=== PATIENT | female | born 1980 | race Caucasian/White ===

== ENCOUNTER 2023-08-12 06:21 | Day surgery (SDC) | payer OTHER, SELFPAY ==
[2023-08-12 08:25] VITALS: BMI 21.3
[2023-08-12 08:26] VITALS: BP 132/86; BMI 21.3
[2023-08-12] MEDS: TYLENOL 1000 MG PO (08:32)
[2023-08-12] MEDS: NORMOSOL-R 1000 IV (08:32)
[2023-08-12 10:18] VITALS: BP 98/47
--- NOTE | 2023-08-12 10:28 | W.SUR.PREOP ---
Pre-Operative Surgical Note
-
I have examined this patient prior to the performance of the scheduled procedure.
The patient's condition is unchanged from the time of the current History and
Physical and the patient is able to undergo the scheduled procedure.
--- NOTE | 2023-08-12 10:28 | W.IMMPOSTOP ---
Surgical Immed Post Op Note
-
Primary Surgeon: Dennis Ambrocio MD
Assisting Surgeon: None
Pre-op Diagnosis: Umbilical hernia
Post-op Diagnosis: Same
Procedure Performed: Open umbilical hernia repair with mesh
Anesthesia Type: MAC
Specimen / Cultures: None
Estimated Blood Loss: 1 cc
Complications: None
Operative Findings: Subcentimeter umbilical defect as well as an additional subcentimeter supraumbilical defect identified and reduced. Final dimensions 1 x 1.5 cm. 4 x 4 cm preperitoneal space developed and a 4 x 4 centimeter piece of Bard soft
uncoated polypropylene mesh was placed in the space.
[2023-08-12 10:30] VITALS: BP 89/52
--- NOTE | 2023-08-12 10:31 | OR.RPT ---
Operative Report
Operative Report
Patient Name: Emma Ahn
: 1980
Date of Operation: 08/12/2023
Preoperative Diagnosis: Umbilical hernia
Postoperative Diagnosis: Same
Procedure(s):
Open umbilical hernia repair with mesh
Surgeon(s):
Dr. Ambrocio
Vehicle Maintenance Technician(s):
MASON Hernández
Anesthesia: MAC
Estimated Blood Loss: 1 cc
Urine Output: None
Drains/Lines/Implants: 4 x 4 centimeter Bard soft uncoated polypropylene mesh
Specimens: None
Indication for surgery:
The patient has a symptomatic umbilical hernia. After review of their therapeutic options, they elected to pursue open repair.
Operative Findings: Subcentimeter umbilical defect as well as an additional subcentimeter supraumbilical defect identified and reduced. Final dimensions 1 x 1.5 cm. 4 x 4 cm preperitoneal space developed and a 4 x 4 centimeter piece of Bard soft
uncoated polypropylene mesh was placed in the space.
Details of the operation:
After successful induction of anesthesia, the patient was clipped, prepped and draped in the supine position. A team timeout was performed confirming administration of DVT prophylaxis, IV antibiotics and SCDs. The skin was anesthestized with 0.25%
Marcaine and an incision was made through the skin line and dissection carried down to the fascia. The hernia sac was then encircled and carefully dissected off of the umbilical stalk. The umbilical sac was closed with a 3-0 Vicryl suture. The
preperitoneal space was then dissected to create a pocket large enough to accommodate the mesh to ensure the mesh laid completely flat. The mesh was then secured with 0 PDS suture in an interrupted fashion. The umbilical stalk was then tacked down
to the fascia with a 3-0 Vicryl suture. The dermis was then approximated with interrupted 3-0 Vicryl sutures followed by Dermabond. Once the glue had dried, we placed a folded up piece of gauze into the umbilicus and covered it with a large
Tegaderm dressing and then suctioned out the gauze to create a vacuum dressing to help obliterate the space. The patient returned to the Recovery Room in stable condition. Sponge and instrument counts were correct. No specimens sent to
Pathology.
I was the attending physician and performed the procedure with assistance from the STAFF TECHNOLOGIST above. I was present for all portions of the case
Dennis Ambrocio MD
[2023-08-12 10:45] VITALS: BP 103/63
[2023-08-12 11:00] VITALS: BP 106/58
[2023-08-12 11:21] VITALS: BP 97/60
== END 2023-08-12 11:40 | disposition home or self-care (01) ==
LOC: SDS 06:21
PROVIDERS: ATTENDING PHYSICIAN Surgery
DX: K42.9 Umbilical hernia without obstruction or gangrene (principal)
CPT/HCPCS: 49591